=== PATIENT | female | born 1960 | race Caucasian/White ===

== ENCOUNTER 2021-06-28 17:01 | Emergency (ER) | payer SELFPAY ==
[2021-06-28] VITALS (10 sets, daily range): BP systolic 105–144; BP diastolic 51–74; PULSE 62–78; RESP 13–22; O2SAT 95–98; BMI 25.8
--- NOTE | 2021-06-28 17:20 | ED_ITS ---
HPI - Extremity Problem General: Chief complaint: Extremity Injury, Upper Stated complaint: fall, arm injury Time Seen by Provider: 06/28/21 17:17 History of Present Illness: HPI Narrative: Ms Burnett is a 61-year-old lady with only remote history of cancer status post completion with history of ostomy who presents emergency department due to fall with arm injury. She reports pain to baseline health the past few days and was dealing with her large dog which ran and pushed her down onto concrete down the step. She immediately had pain in the arm and feels like her arm is broken. She thinks she might of hit her head but does not not recall loss of consci ousness. She additionally has left hip pain and left knee pain however was able to ambulate with assistance. Intensity forearm pain is severe. The course has persisted. Worse with palpation and movement. She does have associated numbness and lack of sensation in the hand. No other specific changes in health, exacerbating, relieving factors identified. Onset (ago): minute(s) Pain Consistency: constant Location: left, upper extremity and lower extremity Severity scale (1-10): 10 Quality: burning, aching and sharp Radiation: proximal Relieving factors: immobilization Exacerbating factors: range of motion and palpation Associated symptoms: Reports no associated symptoms Context: other Review of Systems General: Reports: 10 or more systems reviewed and unremarkable except in HPI and below PFSH ED PFSH: Medical History Cancer Surgical History History of creation of ostomy Social History Smoking and tobacco status: former smoker (13+ years ) Physical Exam Const: COMMON NORMALS: patient oriented x3 and alert GENERAL APPEARANCE: cooperative, well developed and in distress HENMT: COMMON NORMALS: normocephalic and atraumatic HEAD & SCALP: normocephalic and atraumatic THROAT: posterior oropharynx normal Eye: COMMON NORMALS: conjunctivae normal CONJUNCTIVA: Yes conjunctivae normal SCLERA: sclerae normal Neck/C-Spine: COMMON NORMALS: supple GENERAL: Yes trachea midline Resp: COMMON NORMALS: normal respiratory effort EFFORT & INSPECTION: Yes able to speak in complete sentences Cardio: COMMON NORMALS: regular rate and regular rhythm RATE: regular rate RHYTHM: regular rhythm GI: COMMON NORMALS: Soft to palpation PALPATION: Yes Soft to palpation and No Tenderness to palpation present (GI) PERCUSSION: normal to percussion Back/Pelvis: COMMON NORMALS: no thoracic nor lumbar tenderness Extremity: NARRATIVE EXTREMITY EXAM: Obvious deformity to the forearm. Limited sensation and patient reports inability to move fingers, intensity is worse on medial nerve distribution. Does have tenderness in the upper arm as well. Tenderness palpation of left hip and left knee. GENERAL: Yes edema Neuro: COMMON NORMALS: patient oriented x3; negative for no focal motor deficits (See extremities) and negative for no sensory deficits noted (See extremity exam) SENSORIUM/ORIENTATION: Yes alert and No Orientation impaired Psych: COMMON NORMALS: mental status grossly normal and Normal thought process present THOUGHT PROCESS: Normal thought process present Skin: NARRATIVE SKIN EXAM: No lacerations or abrasions Procedures Orthopedic Fracture Reduction Fracture #1: Time Out Performed: Yes Side: left Fracture Reduction Location: radius Analgesia: procedural sedation Technique: direct manipulation Post Reduction X-rays Demonstrate: acceptable reduction Post-reduction neuro exam: no change Post-reduction vascular exam: intact Splint Applied: Yes Patient Tolerated Procedure: well Procedural Sedation ASA Class: I Preparation: rn cardiac applied, pulse oximeter, supplemental O2 applied, suction/airway equipment at bedside and IV secured IV Propofol dose (mg): 140 Patient Tolerated Procedure: well Complications: hypoventilation Interventions: oxygen applied, airway repositioned and assist by BVM Course ED course: - Patient was seen and evaluated by me at bedside - Patient placed on cardiac monitors, IV access obtained - Initial evaluation notable for distress due to pain, obvious forearm deformity - Analgesia ordered - Based on clinical history labs not warranted at this time. - Imaging notable for comminuted and displaced left radius fracture. Based on clinical exam and history I do not feel that CT head imaging is required at this time. - Discussed with Dr Thorpe of the orthopedic service including sensory and motor changes - Patient consented for both procedural sedation and closed reduction. - Procedural sedation and closed reduction performed with improvement in alignment, sensory, motor. Patient recovered completely from procedural sedation without apparent complication - Upon serial reexamination after treatment the patient was mildly improved with analgesia - Based on patient history, evaluation, labs, and imaging as interpreted the most likely cause of the patient's condition is distal radius fracture complicated by decreased sensation and motor which is now post reduction with improvement in sensation and motor - The results of ED evaluation were discussed with the patient including prescriptions and/or symptomatic cares (if applicable) including appropriate and responsible use, followup plan, and return precautions. The patient verbalized understanding and felt safe for discharge. - Patient discharged in satisfactory condition. Note: Click bubbles or prepopulated christine in note writing are used for assistance with data collection and billing and are inherently more limited than narrative and other text portions of this note. Please use narrative for additional clinical history and defer to narrative/free test for any case of contradictory information. If information appears in only free text or click bubble it should be considered present or absent as reported. Please contact note parts data writer for clarifications of clinical information or contradictory information. MDM is a brief summary, contradictory or erroneous seeming information should be clarified and full note should be reviewed. Vital Signs: Vital signs: Vital Signs Pulse Rate 74 06/29/21 00:05 Respiratory Rate 16 06/29/21 00:05 Blood Pressure 123/45 06/29/21 00:05 Pulse Oximetry 96 06/29/21 00:05 MDM - Extremity (Nontraumatic) MDM Narrative Medical decision making narrative: 61-year-old lady with mechanical fall after dog ran into her presenting with obvious deformity left forearm. ED evaluation revealed isolated distal radius fracture with comminuted segments and displacement. Neurologic exam initially with numbness and lack of motor worsening medial nerve distribution. Improved after procedural sedation and closed reduction. Discussed with orthopedics. Plan for follow-up in the morning with potential surgical fixation this week. Medical Records Attestation: I reviewed the patient's medical records. Lab Data Attestation: I reviewed the patient's lab results. Labs: Radiology Impressions Chest X-Ray 06/28/21 17:32 IMPRESSION: No acute findings. Hand X-Ray 06/28/21 17:32 IMPRESSION: 1. Severely comminuted displaced distal left radius fracture. 2. No fracture identified in the left hand. Hip/Pelvis X-Ray 06/28/21 17:32 IMPRESSION: No acute findings. Humerus X-Ray 06/28/21 17:32 IMPRESSION: No acute findings. Knee X-Ray 06/28/21 17:32 IMPRESSION: No acute findings. Shoulder X-Ray 06/28/21 17:32 IMPRESSION: No acute findings. Forearm X-Ray 06/28/21 21:28 IMPRESSION: Reduction and splinting of the distal left radius fracture. Discharge Plan Discharge Patient Disposition: Home Clinical Impression: Distal radial fracture Qualifiers: Encounter type: initial encounter Fracture type: closed Fracture morphology: other fracture Laterality: left Qualified Code(s): S52.592A - Other fractures of lower end of left radius, initial encounter for closed fracture Condition: Stable Prescriptions: New ondansetron 4 mg tablet,disintegrating 4 mg PO Q8H PRN (Reason: nausea and vomiting) 5 Days Qty: 15 0RF No Action oxycodone 5 mg tablet 5 mg PO Q4H PRN (Reason: pain) 7 Days Qty: 30 0RF Discharge Orders: Discharge ED (Routine); Ordered 06/28/21 Ordered By: Jamar Chung Discharge Diet: Usual diet Discharge Activity: Limit activity as instructed Patient Instructions: Wrist Fracture in Adults (ED), Splint Care (ED), Procedural Sedation (ED), Opioid Safety Activity Restrictions/Additional Instructions: Thank you for visiting the emergency department. You were seen and evaluated for fall. You were found to have a break of the distal radius. This was reduced at bedside with satisfactory reduction and splinting. Please follow-up with Dr. Thorpe in the morning, call her clinic first thing when clinic opens. You may drink clear liquids overnight however please do not eat until evaluated in her clinic or until you speak with her nurse regarding this as it is possible that she will recommend surgery for tomorrow. You may use [id number] medications for symptoms as discussed however please do not exceed the daily recommended dosage and please keep in mind that many namebrand medications can have the same active ingredients. Please return to the emergency department for sensory changes, color change, uncontrolled pain, or anything else that you are concerned about and feel needs emergency department evaluation. The orthopedic clinic opens at 8 AM at the phone number is [phone] Coding Level of Care Code ED Customer Sales Specialist for Kathrine Lopez
--- NOTE | 2021-06-28 17:32 | XRR_ITS ---
PROCEDURE INFORMATION: Exam: XR Chest Exam date and time: 06/28/2021 5:32 PM Age: 61 years old Clinical indication: Chest wall pain; Additional info: Trauma TECHNIQUE: Imaging protocol: XR of the chest. Views: 1 view. COMPARISON: No relevant prior studies available. FINDINGS: Lungs: Emphysema. Atelectasis or scarring in the lung bases. Upper left partial pneumonectomy changes. Pleural spaces: Unremarkable. No pleural effusion. No pneumothorax. Heart/Mediastinum: Unremarkable. No cardiomegaly. Bones/joints: Unremarkable. Soft tissues: Breast implants noted. XR/XR chest 1V portable [id number] IMPRESSION: No acute findings.
--- NOTE | 2021-06-28 17:32 | XRR_ITS ---
PROCEDURE INFORMATION: Exam: XR Left Forearm Exam date and time: 06/28/2021 5:32 PM Age: 61 years old Clinical indication: Pain; Lower or forearm; Left; Additional info: Fall, pain TECHNIQUE: Imaging protocol: XR Left forearm. Views: 2 views. COMPARISON: No relevant prior studies available. FINDINGS: Bones/joints: Severely comminuted fracture in the distal metaphysis of the left radius with impaction and anterior displacement and angulation. No definite intra-articular extension. The other bones appear intact. Soft tissues: Dorsal soft tissue swelling in the distal forearm. XR/XR forearm LT 2V [id number] IMPRESSION: 1. Comminuted displaced distal left radius fracture.
--- NOTE | 2021-06-28 17:32 | XRR_ITS ---
PROCEDURE INFORMATION: Exam: XR Left Shoulder Exam date and time: 06/28/2021 5:32 PM Age: 61 years old Clinical indication: Pain; Shoulder; Left; Additional info: Fall, pain TECHNIQUE: Imaging protocol: XR Left shoulder. Views: 2 or more views. COMPARISON: No relevant prior studies available. FINDINGS: Tubes, catheters and devices: Left breast implant. Bones/joints: The bones are intact and in normal alignment. Lungs: Left partial pneumonectomy changes. Mild atelectasis in the left lung base. Soft tissues: Normal. XR/XR shoulder LT min 2V* [id number] IMPRESSION: No acute findings.
--- NOTE | 2021-06-28 17:32 | XRR_ITS ---
PROCEDURE INFORMATION: Exam: XR Left Knee Exam date and time: 06/28/2021 5:32 PM Age: 61 years old Clinical indication: Pain; Knee; Left; Prior surgery; Surgery date: 6+ months; Surgery type: Tendon; Additional info: Fall, pain TECHNIQUE: Imaging protocol: XR Left knee. Views: 3 views. COMPARISON: No relevant prior studies available. FINDINGS: Bones/joints: Normal. Soft tissues: Soft tissue calcifications posterior to the knee. XR/XR knee LT 3V* [id number] IMPRESSION: No acute findings.
--- NOTE | 2021-06-28 17:32 | XRR_ITS ---
PROCEDURE INFORMATION: Exam: XR Left Humerus Exam date and time: 06/28/2021 5:32 PM Age: 61 years old Clinical indication: Pain; Upper arm; Left; Additional info: Fall, pain TECHNIQUE: Imaging protocol: XR Left humerus. Views: 2 or more views. COMPARISON: No relevant prior studies available. FINDINGS: Tubes, catheters and devices: Left breast implant. Bones/joints: The bones appear intact and in normal alignment. The elbow joint and distal humerus are suboptimally visualized. Lungs: Left partial pneumonectomy changes. Soft tissues: Normal. XR/[place] [id number] IMPRESSION: No acute findings.
--- NOTE | 2021-06-28 17:32 | XRR_ITS ---
PROCEDURE INFORMATION: Exam: XR Left Hand Exam date and time: 06/28/2021 5:32 PM Age: 61 years old Clinical indication: Pain; Hand; Left; Additional info: Fall, pain TECHNIQUE: Imaging protocol: XR Left hand. Views: 3 or more views. COMPARISON: No relevant prior studies available. FINDINGS: Bones/joints: Severely comminuted displaced fracture in the distal left radius with impaction and anterior displacement. The bones of the hand appear intact. Soft tissues: Normal. Other findings: Two views submitted. XR/XR hand LT min 3V* [id number] IMPRESSION: 1. Severely comminuted displaced distal left radius fracture. 2. No fracture identified in the left hand.
--- NOTE | 2021-06-28 17:32 | XRR_ITS ---
PROCEDURE INFORMATION: Exam: XR Left Hip Exam date and time: 06/28/2021 5:32 PM Age: 61 years old Clinical indication: Hip pain; Left hip; Additional info: Fall, pain TECHNIQUE: Imaging protocol: XR Left hip. Views: 2 or 3 views hip with pelvis when performed. COMPARISON: No relevant prior studies available. FINDINGS: Bones/joints: Unremarkable. No acute fracture. Soft tissues: Unremarkable. XR/XR hip LT 2-3V wo/w pel* [id number] IMPRESSION: No acute findings.
[2021-06-28] MEDS: morphine 4 mg/mL SDV 1 mL IVP ×2 (17:43→19:37)
[2021-06-28] MEDS: ondansetron 2 mg/ML SDV 2 mL 4 MG IVP (17:44)
[2021-06-28] MEDS: HYDROmorphone 1 mg/mL INJ 1 mL 0.5 MG IVP ×2 (20:43→21:50)
--- NOTE | 2021-06-28 21:28 | XRR_ITS ---
PROCEDURE INFORMATION: Exam: XR Left Forearm Exam date and time: 06/28/2021 9:28 PM Age: 61 years old Clinical indication: Injury or trauma; Fall; Fracture, traumatic injury; Displaced; Wrist; Left; Patient HX: Check S/P reduction; Additional info: Post reduction TECHNIQUE: Imaging protocol: XR Left forearm. Views: 2 views. COMPARISON: CR (UP EXM, ) 06/28/2021 5:44 PM FINDINGS: Tubes, catheters and devices: Splint placement. Bones/joints: The severely comminuted fracture in the distal metaphysis of the left radius has been reduced with slight dorsal angulation and mild displacement of the fragments. Soft tissues: Normal. XR/XR forearm LT 2V [id number] IMPRESSION: Reduction and splinting of the distal left radius fracture.
[2021-06-28] MEDS: fentaNYL 50 mcg/mL INJ 2mL IVP (22:40)
[2021-06-28] MEDS: acetaminophen 500 mg Tablet 1000 MG PO (22:41)
[2021-06-29 00:04] VITALS: RESP 16; O2SAT 96
[2021-06-29 00:05] VITALS: BP 123/45; PULSE 74; RESP 16; O2SAT 96
== END 2021-06-29 00:11 | disposition home or self-care (01) ==
PROVIDERS: Emergency Provider Emergency Medicine
DX: S52.592A Other fractures of lower end of left radius, initial encounter for closed fracture (principal); Z87.891 Personal history of nicotine dependence; W54.1XXA Struck by dog, initial encounter
CPT/HCPCS: 25605; 71045; 73030; 73060; 73090; 73130; 73502; 73562; 96374; 96375; 96376; 99284; J1170; J2270; J2405; J3010

== ENCOUNTER → 2021-06-29 11:40 | Outpatient (BNVA) | payer SELFPAY | PROVIDERS: Visit Provider Specialist | DX: M25.522 Pain in left elbow (principal); S52.509A Unspecified fracture of the lower end of unspecified radius, initial encounter for closed fracture; X58.XXXA Exposure to other specified factors, initial encounter | CPT/HCPCS: 73080; 73110 ==

== ENCOUNTER 2021-06-29 14:08 | Outpatient (CLI) | payer SELFPAY ==
--- NOTE | 2021-06-29 14:00 | CT_ITS ---
WS: [id number] NONCONTRAST CT RIGHT ELBOW TECHNIQUE: Noncontrast CT right elbow with coronal and sagittal reformatted images. CLINICAL INFORMATION: M25.529 - Pain in unspecified elbow COMPARISON: None. DLP: 79.[address] scans at [facility] use at least one of these dose optimization techniques: automated e xposure control; mA and/or kV adjustment per patient size (includes targeted exams where dose is matc hed to clinical indication); or iterative reconstruction. FINDINGS: No significant joint effusion. Small amount of soft tissue edema along the dorsal olecranon. Tiny cristela unt of cortical irregularity along the dorsal olecranon suspicious for a tiny nondisplaced fracture. Normal radial head. Normal proximal ulna. Normal coronoid process. Normal olecranon fossa. Normal tro chlea and capitellum. Distal humerus is normal. CT/CT elbow RT wo con* [id number] IMPRESSION: 1. Normal anatomic alignment. No dislocation. 2. Small amount of soft tissue edema along the dorsal olecranon. Tiny amount o f cortical irregularity along the dorsal olecranon suspicious for a tiny nondis placed fracture. 3. No other visualized fractures. 4. No other significant findings.
== END 2021-06-29 14:09 | disposition home or self-care (01) ==
LOC: RAD 14:11
PROVIDERS: PCP Family Medicine; Visit Provider Specialist
DX: Z01.818 Encounter for other preprocedural examination (principal); M25.521 Pain in right elbow
CPT/HCPCS: 73200; 87635

== ENCOUNTER 2021-06-30 11:12 | Day surgery (SDC) | payer SELFPAY ==
[2021-06-29 19:07] VITALS: BMI 25.8
[2021-06-30] VITALS (33 sets, daily range): BP systolic 108–163; BP diastolic 60–87; PULSE 58–92; RESP 9–17; TEMP 36.5–36.8; O2SAT 88–99
--- NOTE | 2021-06-30 | SCC_ITS ---
Procedure done: Open reduction internal fixation left distal radius fracture with Vitoss supplementation and with release of acute carpal tunnel syndrome 123.9 seconds of fluoroscopic guidance, for a cumulative dose of 2.05 mGy, was provided to Dr. Thorpe by the radiology department. C-arm images of the LEFT wrist were saved for the patient's permanent record. [facility]
--- NOTE | 2021-06-30 | XR_ITS ---
WS: [id number] C-ARM RADIOGRAPHS LEFT WRIST; 3 IMAGES HISTORY: ORIF left wrist COMPARISON: 06/29/2021. Interval placement of plate and screw fixation across a distal radial fracture. Comminuted radial fra cture now in better position and alignment. XR/XR wrist LT 2V [id number] IMPRESSION: Intraoperative fixation of comminuted radial fracture with improved alignment.
--- NOTE | 2021-06-30 12:26 | ANES.PREANE2 ---
Pre-Anesthetic Assessment Height/Weight: Height 1.7 m Weight 74.843 kg Temp Pulse Resp BP Pulse Ox 97.7 F 84 16 163/83 96 06/30/21 11:35 06/30/21 11:35 06/30/21 11:35 06/30/21 11:35 06/30/21 11:35 Preop Diagnosis: Comminuted left distal radius fracture with carpal tunnel symptoms Operation Date: 06/30/21 12:00 Proposed Procedures p ORIF [id number]/s52.509a(Left) - Alanis Thorpe MD s Possible Carpal Tunnel Release(Left) - Alanis Thorpe MD Familial anesthetic complications: None Was Beta Richar taken within 24 hours: N/A Was Clonidine taken within 24 hours: N/A Social No alcohol and No tobacco Exam alert, oriented x 3, clear to auscultation bilaterally and regular rate & rhythm Airway Submandibular: within normal limits Cervical ROM: within normal limits Mallampati: Class II Dentition: full History/ROS No significant history except as noted Anesthetic Plan ASA status: 1 Anesthesia: General Risk of > 500 ml blood loss (7ml/kg in children): No Medications/Allergies Home Medications Medication Instructions Recorded Confirmed Last Taken Type ondansetron 4 mg disintegrating 4 mg PO Q8H PRN 5 Days #15 tab 06/28/21 06/30/21 06/30/21 09:00 Rx tablet oxycodone 5 mg tablet 5 mg PO Q4H PRN #14 tab 06/28/21 06/30/21 06/30/21 09:00 Rx Allergies Allergy/AdvReac Type Severity Reaction Status Date / Time Penicillins Allergy ADR-Dizzine Verified 06/29/21 10:32 ss povidone-iodine Allergy ALGY-Rash Verified 06/30/21 12:20 [From Betadine] [facility] Anesthesia Medical History Cancer Surgical History History of creation of ostomy Social History Smoking and tobacco status: former smoker (13+ years ) Data Anesthesia Cardiac Studies: No Data to Display
--- NOTE | 2021-06-30 12:30 | P.HPUD_ITS ---
Surgery/Procedure H&P Update DATE OF PROCEDURE: June 30, 2021 DATE H&P PERFORMED: 06/29/21 H&P UPDATE INFORMATION: I have reviewed H&P completed within last 30 days, I have examined patient prior to procedure, No changes to prior documentation and H&P is in [facility] EMR on date indicated PREOP DIAGNOSIS: Comminuted left distal radius fracture with carpal tunnel symptoms PLANNED PROCEDURE: Operation Date: 06/30/21 12:00 Proposed Procedures p ORIF [id number]/s52.509a(Left) - Alanis Thorpe MD s Possible Carpal Tunnel Release(Left) - Alanis Thorpe MD Related Problem List Diagnoses (1) Distal radial fracture: Qualifiers: Encounter type: initial encounter Fracture morphology: other fracture Fracture type: closed Laterality: left Qualified Code(s): S52.592A - Other fractures of lower end of left radius, initial encounter for closed fracture (2) Acute carpal tunnel syndrome of left wrist:
[2021-06-30] MEDS: vancomycin 1,000 MG in sodium chloride 0.9% 250 ML 250 MG IV (12:38)
[2021-06-30] MEDS: sodium chloride 0.9% 1,000 ML 30 ML IV (12:41)
[2021-06-30] MEDS: acetaminophen 1,000 MG/100 ML PIGGYBACK 400 MG IV (12:41)
[2021-06-30] MEDS: CELEcoxib 200 mg Capsule 400 MG PO (12:42)
[2021-06-30] MEDS: vancomycin 1,000 MG SDV 1000 MG IRRIGATION (13:26)
--- NOTE | 2021-06-30 15:14 | P.OP_ITS ---
Operative Report Date of procedure: June 30, 2021 Pre-op diagnosis: Comminuted left distal radius fracture with acute carpal tunnel symptoms Post-op diagnosis: same Post-op findings: Very comminuted, displaced distal radius fracture, hematoma. Bone deficit supplemented with Vitoss Procedure done: Open reduction internal fixation left distal radius fracture with Vitoss supplementation and with release of acute carpal tunnel syndrome Implants: [place] distal radius volar plate left, seven hole, intermediate size Specimens removed/disposition: None Pathology: none sent Surgeon: Alanis Thorpe Software Sales Consultant: [facility] operating room technicians Anesthesia: General (LMA, ASA 1) Estimated blood loss (mL): 10 Tourniquet time (min): 104 At 250 mmHg IV fluids (mL): 700 Urine output (mL): 0 Urine output: No Yee Complications: None Findings: Very comminuted distal radius fracture requiring supplementation with Vitoss for support of fracture fragments Condition: stable Disposition: PACU (Then return to same-day surgery for discharge to home) Brief History: This 61-year-old woman was in her usual state of health when she was knocked over by her [place] dog onto a concrete slab. Patient was seen in the emergency room where a closed reduction was accomplished of a very comminuted displaced distal radius fracture. The patient had numbness and inability to move the fingers initially, and this did slightly resolve, but she continued to have symptoms consistent with carpal tunnel syndrome acute from the trauma. The patient was advised that the treatment of choice would be an open reduction internal fixation of her left comminuted unstable distal radius fracture. Given her continued numbness, we also elected to perform acute carpal tunnel release. Procedure: Patient was brought to the operating theater, and after undergoing adequate general anesthesia per LMA, ASA 1, the patient's left upper extremity was prepped and draped in usual fashion utilizing DuraPrep.? The patient had a tourniquet placed high on the arm prior to prepping and draping.? Following prepping and draping, the arm was exsanguinated and the tourniquet was elevated.? Total tourniquet time was 104 minutes at 250 mmHg.? Prior to commencement of the surgical procedure, a surgical pause was performed.? At the time of the surgical pause, we confirmed the site and side of surgery as well as the patient's identity and preoperative surgical markings.? We also confirmed availability of equipment and appropriate preoperative IV antibiotics which was vancomycin 1 g.? Fluoroscopy was also brought into position so that we could visualize the fracture and hardware throughout the surgical procedure.? The f racture was evaluated prior to tourniquet placement. Following elevation of the tourniquet as well as the surgical pause, appropriate plate was chosen. The skin was marked for appropriate incision length and location. An incision was made along the palmaris longus and continued down onto the volar surface of the radius.? Care was taken to avoid injury throughout the surgical procedure to the median nerve as well as to the radial artery.? The flexor carpi radialis was retracted medially.? We were able to essentially elevate the sheath of the flexor carpi radialis and then I was able to place my finger directly onto the distal radius.? For the most part, the patient did her own dissection at the time of his injury.? Soft tissues were elevated off the distal radius to allow access to the fracture and also to the volar aspect of the distal radial shaft.? Reduction required manipulation with a [place] and [place] elevator secondary to the significant comminution. In fact, the main volar piece was unstable enough that we chose to supplement this reduction with Vitoss.? There was significant displacement of the distal fragment of the radius as well as of the large volar fragment.? Fluoroscopy was used to determine whether or not the reduction was appropriate.? We were able to reduce the fracture nearly anatomically.? We then evaluated the plate and chose the intermediate left seven hole volar distal radius plate.? The plate was attached proximally and distally without difficulty.? A combination of locking and nonlocking screws was utilized to attach the plate.? We had excellent fixation and reduction of the fracture. Fluoroscopy was utilized during the procedure.? Once the plate was fully attached, we had a near anatomic position to the distal radius and the distal radius was out to length.? Being satisfied with position, the area was copiously irrigated. There were no fascial tissues to close, and therefore, we closed the subcutaneous tissues with 3-0 interrupted Monocryl.? Skin was closed in a subcuticular fashion with 4-0 Monocryl.?Attention was directed more distally to release the carpal tunnel acutely. An incision was then made along the thenar crease. The incision crossed the wrist joint in a curvilinear fashion. Dissection continued through skin and soft tissues using a scalpel. The palmaris longus was identified along with the transverse carpal ligament. Each of these was released carefully to avoid injury to the median nerve. We were able to dissect gently into the carpal canal which was noted to be quite tight with significant compression across the median nerve. The nerve was visualized, and there was no obvious trauma. The canal was subsequently palpated to assure there was no bony encroachment upon the canal. The canal was then palpated distally and proximally to assure that my small finger was passed easily without impingement. Finding this to be so, attention was directed to closure. The wound was irrigated with ropivacaine plain. It was then closed with 3-0 in an interrupted mattress fashion. This incision connected to the other incision for the ORIF. Sterile dressing was then placed consisting of Dermabond, Steri-Strips, OpSite, fluffed fluffs, sterile soft roll, a volar splint, and an Yoshi wrap. The tourniquet was released after 104 minutes. There were no complications. There were no specimens. The procedure was well tolerated. Plan is the patient will be discharged home.
--- NOTE | 2021-06-30 15:25 | SUR.PHASEI ---
15:14 RECEIVED PATIENT FROM OR STAFF. LMA IN PLACE PATIENT WITH SPONTANEOUS RESPIRATIONS. RESPONDS TO VERBAL.
[2021-06-30] MEDS: fentaNYL 50 mcg/mL INJ 2mL IVP (15:35)
[2021-06-30] MEDS: ondansetron 2 mg/ML SDV 2 mL 4 MG IVP (15:45)
--- NOTE | 2021-06-30 15:49 | SUR.PHASEI ---
MEDICATED FOR PAIN AND NAUSEA. TOLERATING ICE CHIPS. AIRWAY PATENT. VENTILATING WELL. SENSATION AND ROM OF FINGERS OF LEFT HAND.
--- NOTE | 2021-06-30 15:56 | ANE.PACU2 ---
Inpatient post-anesthesia follow up: Airway intact: Yes Vital signs: Temperature 98.0 F Pulse Rate 58 Respiratory Rate 12 Blood Pressure 128/76 Pulse Oximetry 98 Oxygen Delivery Me thod Simple Mask Oxygen Flow Rate 6 Fraction of Inspir ed Oxygen Hydration adequate: Yes Nausea and vomiting: No Pain level: 2 Mental status: Baseline
[2021-06-30] MEDS: oxyCODONE-APAP 5-325 mg Tablet 1 TAB PO (18:20)
== END 2021-06-30 18:25 | disposition home or self-care (01) ==
PROVIDERS: PCP Family Medicine; Visit Provider Specialist
PROC: (CPT 25609; principal; 2021-06-30 12:00)
PROC: (CPT 64721; 2021-06-30 12:00)
DX: S52.592A Other fractures of lower end of left radius, initial encounter for closed fracture (principal); X58.XXXA Exposure to other specified factors, initial encounter; G56.02 Carpal tunnel syndrome, left upper limb; Z87.891 Personal history of nicotine dependence
CPT/HCPCS: 25609; 64721; 73100; 76000; 96365; 96374; C1713; J1100; J1170; J2405; J2704; J3010; J3370; J3490; J7030; J7050

== ENCOUNTER → 2021-07-13 08:13 | Outpatient (BNVA) | payer SELFPAY | PROVIDERS: PCP Family Medicine; Visit Provider Specialist | DX: S52.592D Other fractures of lower end of left radius, subsequent encounter for closed fracture with routine healing (principal); X58.XXXD Exposure to other specified factors, subsequent encounter; Z98.890 Other specified postprocedural states | CPT/HCPCS: 73110 ==

== ENCOUNTER 2021-07-13 09:59 | Outpatient (CLI) | payer SELFPAY | END 2021-07-13 10:00 | disposition home or self-care (01) | LOC: SPT 10:00 | PROVIDERS: PCP Family Medicine; Visit Provider Specialist | DX: Z47.89 Encounter for other orthopedic aftercare (principal) | CPT/HCPCS: 97760; L3982 ==

== ENCOUNTER → 2021-07-25 10:11 | Outpatient (BNVA) | payer SELFPAY | PROVIDERS: PCP Family Medicine; Visit Provider Specialist | DX: Z98.890 Other specified postprocedural states (principal); S52.592D Other fractures of lower end of left radius, subsequent encounter for closed fracture with routine healing; X58.XXXD Exposure to other specified factors, subsequent encounter | CPT/HCPCS: 73110 ==

== ENCOUNTER → 2021-08-31 08:17 | Outpatient (BNVA) | payer SELFPAY | PROVIDERS: PCP Family Medicine; Visit Provider Specialist | DX: S52.502D Unspecified fracture of the lower end of left radius, subsequent encounter for closed fracture with routine healing (principal); G56.02 Carpal tunnel syndrome, left upper limb; X58.XXXD Exposure to other specified factors, subsequent encounter | CPT/HCPCS: 73110 ==

== ENCOUNTER → 2022-07-27 10:34 | Outpatient (BNVA) | payer SELFPAY | PROVIDERS: PCP Family Medicine; Visit Provider Family Medicine | DX: Z00.00 Encounter for general adult medical examination without abnormal findings (principal); M19.90 Unspecified osteoarthritis, unspecified site | CPT/HCPCS: 80053; 80061 ==

== ENCOUNTER 2023-02-14 12:12 | Emergency (ER) | payer SELFPAY ==
[2023-02-14 12:16] VITALS: BP 104/75; PULSE 85; RESP 16; TEMP 36.8; O2SAT 95; BMI 25.0
--- NOTE | 2023-02-14 12:26 | PC.NURSE ---
PT STATES SHE TOOK 4 BENADRYL OF UNK MG
--- NOTE | 2023-02-14 12:27 | ECG_ITS ---
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 Measurements Intervals [place] Rate: 83 P: 76 KS: 125 QRS: 84 QRSD: 101 T: 66 QT: 359 QTc: 424 Interpretive Statements SINUS RHYTHM POSSIBLE LEFT ATRIAL ENLARGEMENT [-0.1mV P-WAVE IN V1/V2] No previous ECG available for comparison Electronically Signed On 02-14-2023 12:40:12 CDT by Karo Rose M.D. [id number]
--- NOTE | 2023-02-14 12:32 | W.ED.ALLEREA ---
HPI - Allergic Reaction General: Chief complaint: Allergic Reaction Stated complaint: bee sitng SOB Time Seen by Provider: 02/14/23 12:25 Source: patient Mode of arrival: ambulatory Limitations: no limitations History of Present Illness: HPI narrative: Patient comes to our emergency department because of concerns about reaction from a insect sting. She states she was stung on the right hand by a yellowjacket bee. She subsequently noted local redness and swelling which has progressed to generalized itching and red rash. She states she feels a little short of breath and is also having some nausea. He states that she initially took 2 Benadryl wkpx-[id number]-[id number] strength (likely 25 mg each) and then subsequently took 2 additional xkdu-kem-hjosrdh strength Benadryl prior to arrival. She states she has never had any systemic count of reactions to any stings etc. previously. Has had stings in the past and had local reaction only. He denies other systemic complaints. Past history is remarkable for colon cancer with a colostomy. No other history of known allergies other than penicillin potentially as well as iodine potentially. MD complaint: allergic reaction and hives Exposure: insect bite Associated symptoms: Reports abdominal pain, itching and nausea Severity: severe Treatment prior to arrival: benadryl Review of Systems Const: Denies: fever(s) or chills Eyes: Denies: change in vision ENMT: Denies: odynophagia Resp: Reports: dyspnea; Denies: wheezing or stridor GI: Reports: abdominal pain and nausea : Denies: flank pain, difficulty voiding or dysuria Musc: Denies: neck pain, back pain, extremity pain or extremity swelling Skin/Breast: Reports: rash, pruritus and erythema Neuro: Denies: numbness in extremities or weakness in extremities Psych: Denies: anxiety, depression, mood swings or panic attacks PFS ED PFSH: Medical History (Updated 02/14/23 @ 13:51 by Napoleon Hill DO) Acute carpal tunnel syndrome of left wrist Arthritis Cancer Colorectal cancer Colostomy in place Distal radial fracture Surgical History History of creation of ostomy S/P ACL repair Social History Smoking and tobacco status: former smoker Physical Exam Narrative: EXAM NARRATIVE: Anxious appearing patient who makes good eye contact and answers questions in a fluent goal-directed fashion. Const: COMMON NORMALS: average body habitus, patient oriented x3 and alert GENERAL APPEARANCE: cooperative and anxious HENMT: COMMON NORMALS: normocephalic, atraumatic, Normal nasal mucous membranes and turbinates present, moist oral mucous membranes and oropharynx normal HEAD & SCALP: normocephalic and atraumatic NOSE: Normal nasal mucous membranes and turbinates present Eye: COMMON NORMALS: Equal, round and reactive pupils present, EOMs intact bilaterally and no scleral icterus PUPIL: Yes Equal, round and reactive pupils present Neck/C-Spine: COMMON NORMALS: full ROM, supple, no JVD and No carotid bruits Chest: COMMONS NORMALS: normal inspection of the chest and normal palpation of entire chest wall Resp: COMMON NORMALS: normal respiratory effort, No retractions, No use of accessory muscles and clear to auscultation bilaterally EFFORT & INSPECTION: Yes able to speak in complete sentences AUSCULTATION: clear to auscultation bilaterally Cardio: COMMON NORMALS: no JVD, regular rate, regular rhythm, No murmurs present (Cardio) and Peripheral pulses 2+ throughout RATE: regular rate RHYTHM: regular rhythm PERIPHERAL PULSES: Peripheral pulses 2+ throughout GI: COMMON NORMALS: Normal to inspection, nondistended, normoactive bowel sounds present, Soft to palpation and non-tender PALPATION: Yes Soft to palpation : COMMON NORMALS: Yes no CVA tenderness BLADDER/KIDNEY EXAM: Yes no CVA tenderness Back/Pelvis: COMMON NORMALS: no CVA tenderness, thoracic and lumbar spine normal to inspection, no thoracic nor lumbar tenderness and thoraco-lumbar ROM normal Extremity: COMMON NORMALS: full ROM and no calf tenderness NARRATIVE EXTREMITY EXAM: Redness and swelling of the digits of the right hand. Neuro: COMMON NORMALS: patient oriented x3, moves all extremities, no focal motor deficits and no sensory deficits noted SENSORIUM/ORIENTATION: Yes alert CRANIAL NERVES: Yes CN normal except as noted Psych: COMMON NORMALS: mental status grossly normal Skin: NARRATIVE SKIN EXAM: Confluent erythema of the skin of her upper trunk extending into her neck. Also some areas of patchy erythema to the extremities both upper and lower. Also abdomen. RASHES: rashes noted Course Reevaluation(s): Reevaluation #1: Some improvement, she states she feels weird but her swallowing seems to be improved and objectively her rash has faded somewhat. Time: 12:54 Reevaluation #2: Continues to subjectively feel much better than previous reevaluation. Skin rashes completely faded. Still has some residual swelling to the fingers of the right hand. Current plan is to observe her in the emergency department for at least another hour to ensure stability and mitigate against early rebound Time: 13:28 Reevaluation #3: Doing quite well. Still has small amount of residual redness and swelling of her right hand but otherwise no systemic symptoms. Vital signs are normal. Lungs are clear, no skin rash no stridor no affected voice etc. She is comfortable and stable and desires to be discharged. I discussed the condition of anaphylaxis, use of EpiPen etc. and also suggested that she have someone come in spray and remove the cast that are present in her backyard area. Time: 14:37 Vital Signs: Vital signs: Vital Signs Temperature 98.3 F 02/14/23 12:16 Pulse Rate 75 02/14/23 13:17 Respiratory Rate 16 02/14/23 12:16 Blood Pressure 132/71 02/14/23 14:20 Pulse Oximetry 94 02/14/23 14:20 Oxygen Delivery Me thod Room Air 02/14/23 14:20 MDM - Allergic Reaction Medical Decision Making Patient made her way to the emergency department after helping symptoms of systemic nature after a bee sting. She had previously had bee stings which is only cause local reaction this is the first time she had systemic symptoms. She presented to the emergency department displaying generalized erythematous rash with associated nausea some abdominal cramping and subjective throat swelling. She received the benefit of usual treatment to include steroids, antihistamines, epinephrine, fluids and continuous monitoring. After a prolonged period of time in the emergency department she displayed continued improvement without any evidence of rebound. Given current of the ART with low incidence of rebound in the observation. She is stable to be discharged. She is being prescribed an EpiPen, recommendations for H1 and H2 blockers for the next 3 days and close follow-up and return precautions. Differential Diagnosis Likely anaphylaxis EKG Data EKG 1: I personally reviewed and interpreted this EKG as follows: Interpretation: Review of resting EKG contemporaneously reveals ventricular rate of 83 bpm. Normal MD interval, QRS duration, corrected QT interval. Normal axis. No acute ST-T wave changes noted. Discharge Plan Discharge Patient Disposition: Home Clinical Impression: Anaphylaxis Condition: Stable Prescriptions: New EpiPen 2-Flaquito 0.3 mg/0.3 mL auto-injector 0.3 mg IM Q10M PRN (Reason: anaphylaxis) Qty: 2 1RF Rx Instructions: for 2 doses No Action (DME) Fast Form Splint See Rx Instructions .Route .MEDSUPPLY Qty: 1 0RF Rx Instructions: As directed meloxicam 15 mg tablet 15 mg PO DAILY Qty: 90 3RF Discharge Orders: Discharge ED (Routine); Ordered 02/14/23 Ordered By: Napoleon Hill Referrals: Hi Leal, [Primary Care Provider] - Discharge Diet: Usual diet Discharge Activity: Increase activity as tolerated Patient Instructions: Opioid Safety, Pain Management Activity Restrictions/Additional Instructions: We have prescribed an EpiPen that you may use should you have a recurrence of similar symptoms after an insect sting or bite. We recommend you also continue to take Pepcid 10 mg tablets 2 tablets 3 times daily for the next 3 days. If you develop any new or recurrent symptoms you should return to the emergency department immediately after use your EpiPen. We also recommend you have some 1 spray your wasp and or being asked in your backyard to reduce the likelihood is much as possible of recurrent symptoms. Coding Level of Care Code ED Concrete Batching Plant Operator for Kathrine Lopez
[2023-02-14] MEDS: EPINEPHrine 1 mg/mL INJ 0.3 MG IM (12:36)
[2023-02-14] MEDS: sodium chloride 0.9% 1,000 ML 999 ML IV (12:42)
[2023-02-14 13:17] VITALS: BP 170/72; PULSE 75; O2SAT 92
[2023-02-14] MEDS: famotidine 20 mg/2 mL INJ 40 MG IVP (13:18)
[2023-02-14 14:20] VITALS: BP 132/71; O2SAT 94
== END 2023-02-14 14:54 | disposition home or self-care (01) ==
PROVIDERS: Emergency Provider Emergency Medicine; PCP Family Medicine
DX: T63.461A Toxic effect of venom of wasps, accidental (unintentional), initial encounter (principal); T78.2XXA Anaphylactic shock, unspecified, initial encounter; X58.XXXA Exposure to other specified factors, initial encounter; Z87.891 Personal history of nicotine dependence; Z85.038 Personal history of other malignant neoplasm of large intestine; Z85.048 Personal history of other malignant neoplasm of rectum, rectosigmoid junction, and anus
CPT/HCPCS: 93005; 96361; 96372; 96374; 96375; 99284; J0171; J2930; J3490; J7030

== ENCOUNTER 2023-08-19 10:43 | Emergency (ER) | payer SELFPAY ==
[2023-08-19 10:51] VITALS: BP 172/93; PULSE 87; RESP 16; TEMP 36.8; O2SAT 95; BMI 26.3
--- NOTE | 2023-08-19 10:51 | CTR_ITS ---
PROCEDURE INFORMATION: Exam: CT Abdomen And Pelvis With Contrast Exam date and time: 08/19/2023 12:05 PM Age: 63 years old Clinical indication: Abdominal pain; Prior surgery; Surgery date: 6+ months; Surgery type: Colostomy; Additional info: History of colostomy, abdominal pain, no output TECHNIQUE: Imaging protocol: Computed tomography of the abdomen and pelvis with contrast. Radiation optimization: All CT scans at this facility use at least one of these dose optimization techniques: automated exposure control; mA and/or kV adjustment per patient size (includes targeted exams where dose is matched to clinical indication); or iterative reconstruction. Contrast material: OMNI 350; Contrast volume: 100 ml; Contrast route: INTRAVENOUS (IV); COMPARISON: CR XR hip LT 2-3V wo/w pel* [id number] 06/28/2021 5:44 PM RADIATION DOSE METRICS: Total DLP (mGy-cm): 479 FINDINGS: Lungs: Linear atelectasis involves the right lung base. Diaphragm: A hiatal hernia is noted in the lower mediastinum. Liver: There are several small cysts throughout the liver measuring up to 2 cm in diameter. Gallbladder and bile ducts: Normal. No calcified stones. No ductal dilation. Pancreas: Normal. No ductal dilation. Spleen: Normal. No splenomegaly. Adrenal glands: 1.5 cm right adrenal adenoma noted. Kidneys and ureters: Normal. No hydronephrosis. Stomach and bowel: A left-sided ostomy is noted and has a normal appearance. A moderate amount of stool is noted in the cecum and ascending colon. I see no bowel distension. Appendix: No evidence of appendicitis. Intraperitoneal space: Unremarkable. No free air. No significant fluid collection. Vasculature: Unremarkable. No abdominal aortic aneurysm. Lymph nodes: Unremarkable. No enlarged lymph nodes. Urinary bladder: Unremarkable as visualized. Reproductive: Unremarkable as visualized. Bones/joints: Unremarkable. No acute fracture. Soft tissues: Unremarkable. CT/CT abdomen pelvis w con* [id number] IMPRESSION: Constipation
--- NOTE | 2023-08-19 10:52 | CTR_ITS ---
PROCEDURE INFORMATION: Exam: CT Lumbar Spine Without Contrast Exam date and time: 08/19/2023 12:05 PM Age: 63 years old Clinical indication: Low back pain TECHNIQUE: Imaging protocol: Computed tomography of the lumbar spine without contrast. Radiation optimization: All CT scans at this facility use at least one of these dose optimization techniques: automated exposure control; mA and/or kV adjustment per patient size (includes targeted exams where dose is matched to clinical indication); or iterative reconstruction. COMPARISON: CT abdomen pelvis w con* [id number] 08/19/2023 12:05 PM RADIATION DOSE METRICS: Total DLP (mGy-cm): 449.3 FINDINGS: Bones/joints: There is an acute compression fracture involving the superior endplate of the L1 vertebral body. There is severe posterior displacement of 1 of the fracture fragments by a distance of 1 cm. This causes some degree of spinal stenosis. No other acute bony abnormality is noted. The bony structures demonstrate diffuse osteopenia. Soft tissues: Unremarkable. CT/CT lumbar spine wo con* [id number] IMPRESSION: Acute L1 compression fracture with osteoporosis. There is posterior retropulsion of the fracture fragment causing significant spinal stenosis
--- NOTE | 2023-08-19 11:04 | W.ED.BACK ---
HPI - Back Pain/Injury General: Chief Complaint: Back Pain/Injury Stated Complaint: back pains Time Seen by Provider: 08/19/23 10:48 History of Present Illness: 63-year-old female who presents to the emergency room with back pain. She says this started about 2 weeks ago. She had been to see her PCP and was started on some Adena and has been taking some Zofran. She says she felt a pop when she lifted a very heavy dog. She also reports decreased output from her colostomy. She says she is a cancer survivor. However she does not have any abdominal pain. No nausea or vomiting. No saddle numbness, no urinary retention or incontinence, no focal motor deficit, no sensory deficit. no recent fever. no cough. no shortness of breath. no chest pain. n no dysuria. no altered mental status. no edema. Review of Systems Narrative: Constitutional symptoms: Negative except as documented in HPI. Skin symptoms: Negative except as documented in HPI. Eye symptoms: Negative except as documented in HPI. ENMT symptoms: Negative except as documented in HPI. Respiratory symptoms: Negative except as documented in HPI. Cardiovascular symptoms: Negative except as documented in HPI. Gastrointestinal symptoms: Negative except as documented in HPI. Genitourinary symptoms: Negative except as documented in HPI. Musculoskeletal symptoms: Negative except as documented in HPI. Neurologic symptoms: Negative except as documented in HPI. Psychiatric symptoms: Negative except as documented in HPI. Endocrine symptoms: Negative except as documented in HPI. FORMERLY [facility], [facility] ED PFSH: Medical History (Updated 08/19/23 @ 12:50 by Angie De Jesus MD) Colorectal cancer Colostomy in place Arthritis Acute carpal tunnel syndrome of left wrist Distal radial fracture Cancer Surgical History History of creation of ostomy S/P ACL repair Social History Smoking and tobacco/nicotine status: former use of tobacco/nicotine Physical Exam Narrative: EXAM NARRATIVE: General: Alert, no acute distress. Head: Normocephalic Neck: Trachea midline Eye: Extraocular movements are intact. Ears, nose, mouth and throat: Oral mucosa moist Respiratory: Respirations are non-labored Musculoskeletal: Normal ROM Back: no step off, no focal tenderness, some paraspinal muscle tenderness Neurological: Alert and oriented to person, place, time, and situation, No focal neurological deficit observed. Psychiatric: Cooperative, appropriate mood & affect. Course Vital Signs: Vital signs: Vital Signs Temperature 98.2 F 08/19/23 10:51 Pulse Rate 75 08/19/23 12:34 Respiratory Rate 16 08/19/23 10:51 Blood Pressure 129/76 08/19/23 12:34 Pulse Oximetry 95 08/19/23 12:34 Oxygen Delivery Me thod Room Air 08/19/23 12:34 MDM - Back Pain/Injury Medical Decision Making Medical decision making: Differential diagnosis including but not limited to and based on the above HPI, review of systems and physical exam: In this patient with low back pain I am ordering a CT scan because she is concerned she may have broken something when she felt a pop. I discussed this is likely not the case and that at some point she may need an MRI if her pain persist and this will have to be done through her primary care provider. I also given her symptoms of abdominal issues with a history of a colostomy and no output I am ordering a CT scan of her abdomen as well. Basic lab work to evaluate for renal failure so contrast can be used. Lab Review: Laboratory results were reviewed and interpreted by myself the emergency room physician. Lab work is unremarkable. No leukocytosis. Hemoglobin is 15. BUN and creatinine are [address] of the lumbar spine: There is a vertebral compression fracture at L1. There is a retropulsed fragment into the spinal canal causing some stenosis. This was reviewed and interpreted by myself the emergency room physician. I also reviewed the radiologist report. CT of the abdomen and pelvis with contrast: No signs of obstruction. No inflammatory process. Diffuse constipation. This was reviewed and interpreted by myself the emergency room physician. I also reviewed the radiologist report. Consultation: I spoke with Dr. Praful Richter who has clinic here in [place] once a month and practices in [place]. He reviewed the films. Patient does not have any neurologic symptoms. No weakness. She does have some stenosis of the cord and he says he will see her in clinic tomorrow. Reexamination: Patient has improved pain after IV pain medications. We discussed findings. She will follow with Dr. Richter. We also discussed her constipation and treatment of this. No increased work of breathing. No altered mental status. No focal motor deficits. No weakness in her legs. Labs 08/19/23 11:12 08/19/23 11:12 Radiology Impressions Abdomen/Pelvis CT 08/19/23 10:51 IMPRESSION: Constipation Lumbar Spine CT 08/19/23 10:52 IMPRESSION: Acute L1 compression fracture with osteoporosis. There is posterior retropulsion of the fracture fragment causing significant spinal stenosis Laboratory Results WBC 7.13 10^3/uL (3.29-11.43) 08/19/23 11:12 RBC 5.29 10^6/uL (3.85-5.65) 08/19/23 11:12 Hgb 15.50 g/dL (11.27-16.99) 08/19/23 11:12 Hct 46.1 % (36-47) 08/19/23 11:12 MCV 87.1 fl (85-98) 08/19/23 11:12 MCH 29.3 pg (27-33) 08/19/23 11:12 MCHC 33.6 g/dL (30-55) 08/19/23 11:12 RDW 12.2 % (12.1-15.1) 08/19/23 11:12 Plt Count 311 10^3/cmm (157-399) 08/19/23 11:12 MPV 9.0 fL (7.4-10.4) 08/19/23 11:12 Neut % (Auto) 72.9 % 08/19/23 11:12 Lymph % (Auto) 20.2 % 08/19/23 11:12 Lane % (Auto) 5.2 % 08/19/23 11:12 Eos % (Auto) 0.8 % 08/19/23 11:12 Baso % (Auto) 0.6 % 08/19/23 11:12 Neut # (Auto) 5.20 10^3/uL (1.8-7.7) 08/19/23 11:12 Lymph # (Auto) 1.4 10^3/uL (0.8-4.8) 08/19/23 11:12 Lane # (Auto) 0.4 10^3/uL (0.2-0.9) 08/19/23 11:12 Eos # (Auto) 0.1 10^3/uL (0.0-0.8) 08/19/23 11:12 Baso # (Auto) 0.0 10^3/uL (0.0-0.1) 08/19/23 11:12 Nucleated RBC % (auto) 0 % 08/19/23 11:12 Nucleated RBCs # 0.0 /100WBC 08/19/23 11:12 Sodium 135 mmol/L (136-145) L 08/19/23 11:12 Potassium 4.2 mmol/L (3.5-5.1) 08/19/23 11:12 Chloride 95 mmol/L (98-107) L 08/19/23 11:12 Carbon Dioxide 25 mmol/L (22-29) 08/19/23 11:12 Anion Gap 19.2 (5-19) H 08/19/23 11:12 BUN 8 mg/dL (8-23) 08/19/23 11:12 Creatinine 0.6 mg/dL (0.5-0.9) 08/19/23 11:12 GFR Calculation 100.6 mL/min (90-130) 08/19/23 11:12 Glucose 99 mg/dL (65-115) 08/19/23 11:12 Calculated Osmolality 278 mOsm/kg (285-295) L 08/19/23 11:12 Calcium 9.3 mg/dL (8.5-10.5) 08/19/23 11:12 C-Reactive Protein 4.7 mg/L (0.0-4.9) 08/19/23 11:12 All radiology interpretation(s) finalized by discharge Other Data Assessment and plan: L1 compression fracture with retropulsed fragment Constipation - Discharged home - Discussed findings and plan with patient. Answered any questions. - All laboratory values were reviewed and interpreted personally by myself, the ER physician - All imaging was reviewed and interpreted personally by myself, the ER physician. - Evaluation and treatment of this problem were appropriate in the emergency setting Discharge Plan Discharge Patient Disposition: Home Clinical Impression: Compression fracture of vertebral column, Constipation Condition: Stable Prescriptions: New ondansetron 8 mg tablet,disintegrating 8 mg PO .q6 PRN (Reason: nausea and vomiting) Qty: 14 0RF magnesium citrate Solution 296 ml PO ONCE Qty: 296 0RF Miralax 17 gram/dose powder 17 g PO DAILY Qty: 510 0RF Rx Instructions: Take 1-2 scoops daily for the next 3 months to keep stools soft glycerin (adult) Suppository 1 supp TN DAILY PRN (Reason: constipation) Qty: 12 0RF oxycodone 5 mg tablet 5 mg PO Q8H PRN (Reason: pain) Qty: 20 0RF No Action (DME) Fast Form Splint See Rx Instructions .Route .MEDSUPPLY Qty: 1 0RF Rx Instructions: As directed prednisone 20 mg tablet See Rx Instructions PO BID Qty: 9 0RF Rx Instructions: 2 po qday x 3 days, then 1 po qday x 3 days cyclobenzaprine 10 mg tablet 10 mg PO TID PRN (Reason: muscle spasm) Qty: 30 0RF hydrocodone-acetaminophen 5-325 mg tablet 1 tab PO QID PRN (Reason: pain, low back pain) 10 Days Qty: 25 0RF ondansetron HCl 4 mg tablet 4 mg PO QID PRN (Reason: nausea and vomiting) 10 Days Qty: 40 0RF meloxicam 15 mg tablet 15 mg PO DAILY Qty: 90 3RF epinephrine [EpiPen 2-Flaquito] 0.3 mg/0.3 mL auto-injector 0.3 mg IM Q10M PRN (Reason: anaphylaxis) Qty: 2 1RF Rx Instructions: for 2 doses Discharge Orders: Discharge ED (Routine); Ordered 08/19/23 Ordered By: Angie De Jesus Referrals: Praful Richter MD [Referring] - 1-3 days (Call for appointment first thing in the morning. Around 8 or 9:[address] opens[address] Dr. Richter said he likely will see you tomorrow.) Hi Leal, DO [Primary Care Provider] - (You have been screened and evaluated and felt safe for discharge. Health conditions do change or evolve sometimes and as such it is important that you follow up with your Primary Doctor to be re checked, 3-5 days is a general good time frame for follow up. You are always welcome to return to the ED for re assessment if your symptoms are worsening or you have new concerns) Discharge Diet: Usual diet Discharge Activity: Increase activity as tolerated Patient Instructions: Opioid Safety, Pain Management Coding Level of Care Code ED Fancy Wire Drawer for Kathrine Lopez
[2023-08-19 11:16] VITALS: BP 134/80; PULSE 76; O2SAT 95
[2023-08-19 11:18] LABS: Basophils % 0.6 %; Eosinophils # 0.1 10^3/uL (0.0-0.8); Eosinophils % 0.8 %; Hematocrit 46.1 % (36-47); Lymphocytes # 1.4 10^3/uL (0.8-4.8); Lymphocytes % 20.2 %; Mean Corpuscular HGB Conc 33.6 g/dL (30-55); Mean Corpuscular Hemoglobin 29.3 pg (27-33); Mean Corpuscular Volume 87.1 fl (85-98); Monocytes # 0.4 10^3/uL (0.2-0.9); Monocytes % 5.2 %; Neutrophils % 72.9 %; Nucleated Red Blood Cells % 0 %; Platelet Count 311 10^3/cmm (157-399); Red Blood Count 5.29 10^6/uL (3.85-5.65); Red Cell Distribution Width 12.2 % (12.1-15.1); White Blood Count 7.13 10^3/uL (3.29-11.43)
[2023-08-19 11:38] LABS: Anion Gap 19.2 (5-19); Blood Urea Nitrogen 8 mg/dL (8-23); C Reactive Protein 4.7 mg/L (0.0-4.9); Calcium 9.3 mg/dL (8.5-10.5); Carbon Dioxide 25 mmol/L (22-29); Chloride 95 mmol/L (98-107); Glomerular Filtration Rate 100.6 mL/min (90-130); Glucose 99 mg/dL (65-115); Osmolality Calculated 278 mOsm/kg (285-295); Potassium 4.2 mmol/L (3.5-5.1); Sodium 135 mmol/L (136-145)
[2023-08-19] MEDS: ondansetron 2 mg/ML SDV 2 mL 4 MG IVP (11:51)
[2023-08-19] MEDS: HYDROmorphone 1 mg/mL INJ 1 mL IVP (11:54)
[2023-08-19] MEDS: iohexol 350 mg/mL 500 mL Btl (per mL) IV (12:15)
[2023-08-19 12:34] VITALS: BP 129/76; PULSE 75; O2SAT 95
[2023-08-19 13:13] VITALS: BP 138/74; PULSE 71; O2SAT 95
--- NOTE | 2023-08-20 14:53 | DCPLANNER ---
Yohannes Mir in [facility] called requesting this patients ER visit for a continuity of care. I faxed this visit chart to [facility] at [phone]
== END 2023-08-19 13:14 | disposition home or self-care (01) ==
PROVIDERS: Emergency Provider Emergency Medicine; PCP Family Medicine
DX: K59.00 Constipation, unspecified (principal); S32.018A Other fracture of first lumbar vertebra, initial encounter for closed fracture; Z85.038 Personal history of other malignant neoplasm of large intestine; Z87.891 Personal history of nicotine dependence; X50.0XXA Overexertion from strenuous movement or load, initial encounter
CPT/HCPCS: 72131; 74177; 80048; 85025; 86140; 96374; 96375; 99285; J1170; J2405; Q9967

== ENCOUNTER 2023-12-14 16:19 | Outpatient (CLI) | payer OTHER, SELFPAY ==
--- NOTE | 2023-12-14 16:23 | XRR_ITS ---
PROCEDURE INFORMATION: Exam: XR Lumbosacral Spine Exam date and time: 12/14/2023 4:36 PM Age: 63 years old Clinical indication: Injury or trauma; Other: Lifting accident; Prior surgery; Surgery date: 6+ months; Surgery type: Colon resection with colostomy 2013; Patient HX: Mid/lower back pain; Eval known l1 compression FX approx 4-5 mo ago TECHNIQUE: Imaging protocol: Radiologic exam of the lumbosacral spine. Views: 6 or more views. Including flexion and extension views. COMPARISON: CT lumbar spine wo con* [id number] 08/19/2023 12:05 PM FINDINGS: Bones/joints: There is healing fracture of the L1 vertebral body with 60% height loss. There is osteopenia. No acute fracture. No significant translation with flexion or extension. Soft tissues: Unremarkable. XR/XR lumbar spine 6V w f/e [id number] IMPRESSION: There is healing fracture of the L1 vertebral body
== END 2023-12-14 16:20 | disposition home or self-care (01) ==
LOC: RAD 16:20
PROVIDERS: PCP Family Medicine; Visit Provider Family Medicine
DX: S32.019A Unspecified fracture of first lumbar vertebra, initial encounter for closed fracture (principal); M85.80 Other specified disorders of bone density and structure, unspecified site
CPT/HCPCS: 72114